=== PATIENT | male | born 1945 | race Caucasian/White ===

== ENCOUNTER 2017-04-01 07:48 | Inpatient (IN) ==
--- NOTE | 2017-04-01 10:24 | Cardiology History & Physical ---
<MahamedAngiAmanda L - Last Filed: 04/01/17 12:55> Date of Encounter: 04/01/17 Time of Encounter: 11:15 Assessment and Plan (1) PAF (paroxysmal atrial fibrillation) Current Visit: Yes Status: Acute Admission for sotalol therapy d/t symptomatic PAF. Afib with controlled rate upon presentation. Baseline EC04/01/17 HR 90 (afib) QRS 105 QT/QTc 339/387 Did not take AM dose Pradaxa; will give now. Continue home medications including cardizem. Monitor telemetry closely. Obtain daily ECG, baseline CBC, BMP, and Mag. Hx of CKD-2, will monitor kidney function closely. Will need inpatient monitoring for at least 5 doses. Plan for possible DCCV prior to discharge if has not converted to NSR. Anticoagulated on Pradaxa 150 mg BID, has not missed doses in >30 days. The patient was discussed and reviewed with Dr. Malcolm. (2) Encounter for monitoring anti-arrhythmic therapy Current Visit: Yes Status: Acute Plan as above. (3) DMII (diabetes mellitus, type 2) Current Visit: Yes Status: Chronic Resume home medications. Qualifiers: Diabetes mellitus complication status: with neurologic complications Diabetes mellitus complication detail: with polyneuropathy Diabetes mellitus nursing home insulin use: without watermaster use Qualified Code(s): E11.42 - Type 2 diabetes mellitus with diabetic polyneuropathy (4) Essential (primary) hypertension Current Visit: Yes Status: Chronic Continue home medications. Will adjust medications accordingly. History of Present Illness Chief complaint: Antiarrhythmic therapy--sotalol HPI: Mr. Mcdermott is a 71 year old male with PMH significant for DMII, HTN, HLD, GERD , SVT s/p ablation (2006 at [facility]), and afib who presents today for elective admission for antiarrhythmic initiation with sotalol. He has been to the ED on two separate occasions in the past due to symptomatic PAF (fatigue,dyspnea). Reports has been taking Pradaxa BID for >30 days. No abnormal or unusual bleeding. Prior CV testing: Regadenoson nuclear 02/20/17: perfusion imaging was negative for ischemia or infarct, pharmacologic stress ECG non-diagnostic due to baseline non-specific ST /T changes, gated EF=60% TTE 02/15/17: LVEF 50-55%, mild cLVH, mildly dilated RV with normal function, severely dilated LA and RA, no significant valvular dysfunction, normal wall motion EP study 02/06/17 ([facility]): successful ablation of AVNRT [facility] 02/06/17 ([facility]): no angiographically definable disease Past Med Surg Social Fam HX - Past Medical History Attestation: Yes The following information was validated with the patient. Source: patient, old records reviewed Medical history: arthritis, atrial fibrillation, diabetes, hyperlipidemia, hypertension, renal disease (CKD-2) - Past Surgical History Surgical History: appendectomy, cholecystectomy, other (EP study with ablation) - Family History Father Age: 86 Living Status: Cause of : Heart disease Hx Family Cardiac Disorders: Yes (CAD) Hx Family Cancer: Yes (colorectal) Hx Family Endocrine Disorder: Yes (Dm) Medications and Allergies Aspirin [Lo-Dose Aspirin EC] 81 mg PO DAILY 04/01/17 [History] Atorvastatin [Lipitor] 40 mg PO HS 04/01/17 [History] Buspirone HCl [Buspar] 10 mg PO BID 04/01/17 [History] Dabigatran [Pradaxa] 150 mg PO BID 04/01/17 [History] Diltiazem CD (24hr) [Cardizem CD] 120 mg PO BID 04/01/17 [History] Esomeprazole Magnesium [Nexium 24Hr] 2 tab PO DAILY 04/01/17 [History] Furosemide [Lasix] 40 mg PO DAILY 04/01/17 [History] GlipiZIDE [Glipizide ER] 10 mg PO BID 04/01/17 [History] Insulin Degludec [Tresiba Flextouch U-100] 70 unit SQ DAILY 04/01/17 [History] Lisinopril [Zestril] 40 mg PO DAILY 04/01/17 [History] Loratadine [Allergy Relief] 10 mg PO DAILY 04/01/17 [History] Metformin HCl [Metformin HCl ER] 1,000 mg PO BID 04/01/17 [History] Pantoprazole Sodium [Protonix] 40 mg PO DAILY 04/01/17 [History] Pregabalin [Lyrica] 100 mg PO TID 04/01/17 [History] Allergies No Known Allergies Allergy (Unverified 02/20/17 10:57) All Systems Review: A 10-system review of systems was performed and is negative for pertinent findings except as documented above in the HPI. - Cardiovascular Cardiovascular: as per HPI Physical Examination General: Conversant, No Apparent Distress HEENT: Atraumatic, Normocephaly, Mucus Membranes Moist Neck: No JVD, Normal carotid pulses Cardiac: Normal S1 and S2, No Murmur, Other (irregularly irregular) Lungs: Normal Breath Sounds, No Wheeze, Rales, Rhonchi Neuro: Alert and responsive, No focal deficits noted Abdomen: Soft, Non-Tender Skin: No rashes noted on visualized skin Musculoskeletal: No Chest Wall Tenderness Extremities: No Clubbing, No Cyanosis, No Edema, Normal Pulses Results 04/01/17 10:59 04/01/17 10:59 - Imaging and Cardiology Stress Test: report reviewed Echo: report reviewed Cardiac cath: report reviewed Other Results: Afib 80's-90's - EKG Interpretation EKG results cardiology: personally reviewed <Shannan Malcolm - Last Filed: 04/01/17 16:20> Date of Encounter: 04/01/17 History of Present Illness HPI: Mr. Mcdermott is a 71 year old male All Systems Review: A 10-system review of systems was performed and is negative for pertinent findings except as documented above in the HPI. Physical Examination Vital Signs, Last 4 Hours Temp Pulse Resp BP Pulse Ox 04/01/17 16:08 98.4 F 72 18 127/71 96 Results 04/01/17 10:59 04/01/17 10:59 Lab Results 04/01/17 04/01/17 10:59 10:59 WBC 9.3 Hgb 15.3 Hct 44.7 Plt Count 125 L Sodium 142 Potassium 4.2 Chloride 103 Carbon Dioxide 31 H BUN 10 Creatinine 1.09 Glucose 186 H Calcium 9.9 Magnesium 1.5 L - Attending Attestation I examined this patient and my medical decision-making was reviewed with the CABLE INSTALLER/PA/Advanced Practice Nurse/Resident Physician. I agree with the documented findings, disposition and treatment plan. Mr. Mcdermott is being admitted for sotalol initiation due to symptomatic atrial fibrillation. He is anticoagulated with pradaxa. Renal function is normal. All questions from patient and were answered.
[2017-04-01 11:23] LABS: Basophils % 0.3 %; Eosinophils # 0.2 K/mcL (0.0-0.6); Eosinophils % 2.2 %; Hematocrit 44.7 % (37.5-50.1); Hemoglobin 15.3 g/dL (12.9-16.9); Immature Granulocytes % 1.1 % (0-4); Lymphocytes # 1.9 K/mcL (0.6-4.6); Lymphocytes % 20.1 %; Mean Corpuscular HGB Conc 34.2 g/dL (31.6-35.5); Mean Corpuscular Hemoglobin 28.7 pg (28.0-33.3); Mean Corpuscular Volume 83.7 fL (83.0-100.0); Mean Platelet Volume 9.7 fL (9.4-12.4); Monocytes # 0.5 K/mcL (0.0-1.3); Monocytes % 4.9 %; Neutrophils # 6.7 K/mcL (1.6-8.9); Platelet Count 125 K/mcL (140-400); Red Blood Count 5.34 M/mcL (4.19-5.50); Red Cell Distribution Width 15.2 % (11.5-14.5); Segmented Neutrophils % 71.4 %
[2017-04-01 11:35] LABS: BUN/Creatinine Ratio 9 (6-26); Blood Urea Nitrogen 10 mg/dL (8-26); Calcium 9.9 mg/dL (8.6-10.8); Carbon Dioxide 31 mEq/L (19-29); Chloride 103 mEq/L (98-109); Glucose 186 mg/dL (70-99); Magnesium 1.5 mg/dL (1.6-2.6); Osmolality,Calculated 298 (280-300); Potassium 4.2 mEq/L (3.5-4.5); Sodium 142 mEq/L (136-145); eGFR For African Americans > 60 (> 60); eGFR For Non-African Americans > 60 (> 60)
[2017-04-01] MEDS ORDERED: Magnesium Sulfate 2 GM in D5% in Water 100 ML IVPB ONE (11:42)
[2017-04-01] MEDS ORDERED: Naloxone 0.4 MG/ML INJ IVP PRN (11:43)
[2017-04-01] MEDS ORDERED: Ondansetron 4 MG/2 ML VIAL IVP PRN (11:43)
[2017-04-01] MEDS ORDERED: *HR* Dabigatran 150 MG CAPSULE PO SCH (11:45)
[2017-04-01] MEDS ORDERED: *HR* Dabigatran 150 MG CAPSULE PO ONE (11:50)
[2017-04-01 15:26] LABS: Bilirubin,Urine Negative (Negative); Blood,Urine Negative (Negative); Clarity,Urine Cloudy (Clear); Color,Urine Yellow (Yellow); Glucose,Urine (UA) Normal (Normal); Ketones,Urine Negative (Negative); Leukocyte Esterase,Urine Moderate (Negative); Nitrite,Urine Positive (Negative); PH,Urine 5.5 pH Units (5.0-8.0); Protein,Urine Negative (Neg-Trace); Specific Gravity,Urine 1.015 (1.010-1.025); Urobilinogen,Urine Normal (Normal)
[2017-04-01 15:28] LABS: Bacteria,Urine Many per hpf (None-Few); Hyaline Casts,Urine None Seen per lpf (None-Few); RBC,Urine 0-3 per hpf (0-3); Squamous Epithelial Cell,Urine None Seen per lpf (None-Few); WBC,Urine 30-50 per hpf (0-3)
[2017-04-01] MEDS: *HR* Metformin 500 MG TABLET PO SCH (18:05)
[2017-04-01] MEDS: *HR* GlipiZIDE XL (24 HR) 10 MG TABLET PO SCH (18:06)
[2017-04-01] MEDS: Pregabalin 50 MG CAPSULE PO SCH (21:38)
[2017-04-01] MEDS: *HR* Dabigatran 150 MG CAPSULE PO SCH (21:38)
[2017-04-02] MEDS: Lisinopril 20 MG TABLET PO SCH (08:06)
[2017-04-02] MEDS: *HR* Dabigatran 150 MG CAPSULE PO SCH ×2 (08:07→20:31)
[2017-04-02] MEDS: *HR* Metformin 500 MG TABLET PO SCH ×2 (08:07→17:18)
[2017-04-02] MEDS: Furosemide 40 MG TABLET PO SCH (08:08)
[2017-04-02] MEDS: *HR* GlipiZIDE XL (24 HR) 10 MG TABLET PO SCH ×2 (08:08→17:18)
[2017-04-02] MEDS: Diltiazem CD (24hr) 120 MG CAPSULE PO SCH (08:08)
[2017-04-02] MEDS: Aspirin Enteric Coated 81 MG Tablet PO SCH (08:08)
[2017-04-02] MEDS: Pregabalin 50 MG CAPSULE PO SCH ×2 (08:08→20:31)
[2017-04-02] MEDS: Loratadine 10 MG TABLET PO SCH (08:08)
[2017-04-02] MEDS: INSULIN DEGLUDEC 70 UNIT SQ SCH (08:09)
[2017-04-02] MEDS ORDERED: INSULIN DEGLUDEC 70 UNIT SQ SCH (09:00)
--- NOTE | 2017-04-02 10:15 | Cardiology Progress Note ---
Date of Encounter: 04/02/17 Time of Encounter: 10:00 Assessment and Plan (1) PAF (paroxysmal atrial fibrillation) Current Visit: Yes Status: Acute Admission for sotalol therapy d/t symptomatic PAF. Afib with controlled rate upon exam. 12 hour tele: avg HR=74 afib, no significant pause or event noted. Baseline EC04/01/17 HR 90 (afib) QRS 105 QT/QTc 339/387ms ECG 04/02/17 (s/p 2 doses): HR 74 (afib) QRS 100 QT/QTc 369/396 ms Continue daily ECG. Kidney function stable, Mag replaced yesterday. Repeat labs in AM. Will need inpatient monitoring for at least 5 doses. Plan for possible DCCV in AM prior to d/c. 5th dose due 04/03/17 at 6PM. Anticoagulated on Pradaxa 150 mg BID, has not missed doses in >30 days. (2) Encounter for monitoring anti-arrhythmic therapy Current Visit: Yes Status: Acute Plan as above. (3) DMII (diabetes mellitus, type 2) Current Visit: Yes Status: Chronic Resume home medications. Qualifiers: Diabetes mellitus complication status: with neurologic complications Diabetes mellitus complication detail: with polyneuropathy Diabetes mellitus systems integrator insulin use: without assisted use Qualified Code(s): E11.42 - Type 2 diabetes mellitus with diabetic polyneuropathy (4) Essential (primary) hypertension Current Visit: Yes Status: Chronic Continue home medications. Will adjust medications accordingly. (5) Suspected UTI Current Visit: Yes Status: Acute UA positive for Leuk.esterase, nitrates, and bacteria. Urine Cx pending. Afebrile, WBC normal. Reports dysuria on and off for several months. Admits to malodorous urine. Priscilla Lares (); will start Rocephin 1gm q24h and await urine culture results. Recommended 10 day course of antibiotics with close outpatient follow-up with PCP. Discussion w patient/family: The patient will be discussed and reviewed with Dr. Malcolm, changes to be made accordingly. The assessment and plan as outlined above was discussed with the patient and/or family members who expressed understanding and agreement. All questions were answered. Thank you for involving us in the care of your patient. Please call with any questions. Subjective Principal diagnosis: Sotalol therapy Interval history: Seen and examined. Continues to describe dysuria--states on and off for several months. No other symptoms reported overnight including headache, cough, fever, chills, flank pain. Denies CV symptoms including chest pain/discomfort, palpitations, or dyspnea. Objective Vital Signs, Last 4 Hours Temp Pulse Resp Pulse Ox 04/02/17 08:00 66 04/02/17 07:18 97.8 F 68 17 94 04/02/17 07:00 77 General: Conversant, No Apparent Distress HEENT: Atraumatic, Normocephaly, Mucus Membranes Moist Neck: No JVD, Normal carotid pulses Cardiac: No Murmur, Other (irregularly irregular) Lungs: Normal Breath Sounds, No Wheeze, Rales, Rhonchi Neuro: Alert and responsive, No focal deficits noted Abdomen: Soft, Non-Tender Skin: No rashes noted on visualized skin Musculoskeletal: No Chest Wall Tenderness Extremities: No Clubbing, No Cyanosis, No Edema, Normal Pulses Results 04/01/17 10:59 04/01/17 10:59 Lab Results 04/01/17 04/01/17 10:59 10:59 WBC 9.3 Hgb 15.3 Hct 44.7 Plt Count 125 L Sodium 142 Potassium 4.2 Chloride 103 Carbon Dioxide 31 H BUN 10 Creatinine 1.09 Glucose 186 H Calcium 9.9 Magnesium 1.5 L - Imaging and Cardiology Stress Test: report reviewed Echo: report reviewed Cardiac cath: report reviewed Other Results: 12 hour tele: avg HR=73 afib. No significant pause, event noted. - EKG Interpretation EKG results cardiology: personally reviewed - VTE Reasons for not Prescribing Prophylaxis: Not indicated-Anticoagulated or INR therapeutic Consult Discharge Plan - Plan Referrals: Dru Friedman DO [Primary Care Provider] - 04/10/17 1:00 pm Abilio Petersen MD [Partnered Physician] - (CARDIOLOGY OFFICE WILL CALL PATIENT WITH F/U APPOINTMENT)
--- NOTE | 2017-04-02 18:56 | Electrocardiograph Report ---
[address] [place] [address] Test Date: 2017-04-01 Pat Name: Campos Mcdermott Department: 110 Room: 2N08 Gender: M Back Maker: SCOOTER : 1945 Requested By: Amanda Irby Order Number: [id number] Reading MD: Rahel Petersen Measurements Intervals [place] Rate: 90 P: SC: 0 QRS: -26 QRSD: 105 T: 31 QT: 339 QTc: 387 Interpretive Statements ATRIAL FIBRILLATION INFERIOR MYOCARDIAL INFARCTION, PROBABLY OLD Electronically Signed On 04-02-2017 18:55:12 EDT by Rahel ePtersen
--- NOTE | 2017-04-02 19:06 | Electrocardiograph Report ---
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
[2017-04-03 07:17] LABS: BUN/Creatinine Ratio 17 (6-26); Blood Urea Nitrogen 16 mg/dL (8-26); Calcium 9.1 mg/dL (8.6-10.8); Carbon Dioxide 28 mEq/L (19-29); Chloride 104 mEq/L (98-109); Glucose 135 mg/dL (70-99); Magnesium 1.5 mg/dL (1.6-2.6); Osmolality,Calculated 295 (280-300); Potassium 3.8 mEq/L (3.5-4.5); Sodium 141 mEq/L (136-145); eGFR For African Americans > 60 (> 60); eGFR For Non-African Americans > 60 (> 60)
[2017-04-03] MEDS: *HR* Metformin 500 MG TABLET PO SCH ×2 (08:16→16:29)
[2017-04-03] MEDS: *HR* GlipiZIDE XL (24 HR) 10 MG TABLET PO SCH ×2 (08:16→16:29)
[2017-04-03] MEDS: Lisinopril 20 MG TABLET PO SCH (09:50)
[2017-04-03] MEDS: Pregabalin 50 MG CAPSULE PO SCH ×2 (09:50→21:03)
[2017-04-03] MEDS: Loratadine 10 MG TABLET PO SCH (09:51)
[2017-04-03] MEDS: Aspirin Enteric Coated 81 MG Tablet PO SCH (09:51)
[2017-04-03] MEDS: Furosemide 40 MG TABLET PO SCH (09:51)
[2017-04-03] MEDS: *HR* Dabigatran 150 MG CAPSULE PO SCH ×2 (09:51→21:03)
[2017-04-03] MEDS: Diltiazem CD (24hr) 120 MG CAPSULE PO SCH (09:51)
[2017-04-03] MEDS ORDERED: 0.9 % Sodium Chloride 500 ML IVC ONE (10:10)
[2017-04-03] MEDS: *HR* Midazolam HCl 5 MG/5 ML VIAL IVP PRN ×3 (11:15→11:27)
[2017-04-03] MEDS: *HR* FentaNYL (PF) 100 MCG/2 ML VIAL IVP PRN ×3 (11:15→11:27)
--- NOTE | 2017-04-03 13:01 | Event Note ---
Date of Encounter: 04/03/17 Time of Encounter: 13:00 - Cardiology Event Note Successful DCCV on second shock at 300J. Pt very drowsy, is disabled and concerned about taking him home today, would prefer he stay one more night for monitoring, which is reasonable given the situation. EKGs reviewed, QTc remains <500ms. Currently SR, rate 60s. Anticipate discharge home in AM.
[2017-04-03] MEDS: INSULIN DEGLUDEC 70 UNIT SQ SCH (16:31)
--- NOTE | 2017-04-03 17:57 | Electrocardiograph Report ---
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
--- NOTE | 2017-04-03 18:06 | Electrocardiograph Report ---
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
--- NOTE | 2017-04-03 18:06 | Electrocardiograph Report ---
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
[2017-04-04 07:30] VITALS: BP 133/74
[2017-04-04] MEDS: *HR* Dabigatran 150 MG CAPSULE PO SCH (07:49)
[2017-04-04] MEDS: Lisinopril 20 MG TABLET PO SCH (07:49)
[2017-04-04] MEDS: Pregabalin 50 MG CAPSULE PO SCH (07:50)
[2017-04-04] MEDS: *HR* Metformin 500 MG TABLET PO SCH (07:50)
[2017-04-04] MEDS: Diltiazem CD (24hr) 120 MG CAPSULE PO SCH (07:50)
[2017-04-04] MEDS: Loratadine 10 MG TABLET PO SCH (07:50)
[2017-04-04] MEDS: Aspirin Enteric Coated 81 MG Tablet PO SCH (07:50)
[2017-04-04] MEDS: *HR* GlipiZIDE XL (24 HR) 10 MG TABLET PO SCH (07:50)
[2017-04-04] MEDS: Furosemide 40 MG TABLET PO SCH (07:50)
[2017-04-04] MEDS: INSULIN DEGLUDEC 70 UNIT SQ SCH (08:24)
[2017-04-04] MEDS ORDERED: Magnesium Oxide 400 MG TABLET PO SCH (09:00)
--- NOTE | 2017-04-04 09:19 | Discharge Summary ---
Date of Encounter: 04/04/17 Time of Encounter: 09:16 - Discharge Diagnosis (1) PAF (paroxysmal atrial fibrillation) Priority: Primary Status: Acute Comments: Admission for sotalol therapy d/t symptomatic PAF. Has received >5 doses, QTc remains <500ms. Mag 1.5, placed on PO Magnesium. S/P Successful DCCV yesterday. Restored SR after second shock at 300J. Cerda from DCCV noted on chest and back. No open areas. Will order Silvadene cream. Anticoagulated on Pradaxa 150 mg BID, has not missed doses in >30 days. Discharge home in stable condition with outpt follow-up. (2) Encounter for monitoring anti-arrhythmic therapy Priority: Primary Status: Acute Comments: As above. (3) DMII (diabetes mellitus, type 2) Priority: Secondary Status: Chronic Comments: Resume home meds. Qualifiers: Diabetes mellitus complication status: with neurologic complications Diabetes mellitus complication detail: with polyneuropathy Diabetes mellitus emt intermediate insulin use: without emt intermediate use Qualified Code(s): E11.42 - Type 2 diabetes mellitus with diabetic polyneuropathy (4) Essential (primary) hypertension Priority: Secondary Status: Chronic Comments: Controlled on current meds. (5) UTI (urinary tract infection) Priority: Secondary Status: Acute Comments: Pt complained of dysuria, UA positive with culture growing E.coli. Has been on IV Rocephin while inpt. Will discharge home with 7 day course of Macrobid 100mg BID. Follow-up with PCP. Qualifiers: Urinary tract infection type: acute cystitis Hematuria presence: without hematuria Qualified Code(s): N30.00 - Acute cystitis without hematuria - Discharge Medications Prescriptions: Sotalol [Betapace] 80 mg PO Q12HR #60 tablet Magnesium Oxide [Mag-Ox] 400 mg PO DAILY #30 tablet Nitrofurantoin (BID) [Macrobid] 100 mg PO BIDWM #13 capsule Home Medications: Aspirin [Lo-Dose Aspirin EC] 81 mg PO DAILY 04/01/17 [History] Atorvastatin [Lipitor] 40 mg PO HS 04/01/17 [History] Buspirone HCl [Buspar] 10 mg PO BID 04/01/17 [History] Dabigatran [Pradaxa] 150 mg PO BID 04/01/17 [History] Diltiazem CD (24hr) [Cardizem CD] 120 mg PO BID 04/01/17 [History] Esomeprazole Magnesium [Nexium 24Hr] 2 tab PO DAILY 04/01/17 [History] Furosemide [Lasix] 40 mg PO DAILY 04/01/17 [History] GlipiZIDE [Glipizide ER] 10 mg PO BID 04/01/17 [History] Insulin Degludec [Tresiba Flextouch U-100] 70 unit SQ DAILY 04/01/17 [History] Lisinopril [Zestril] 40 mg PO DAILY 04/01/17 [History] Loratadine [Allergy Relief] 10 mg PO DAILY 04/01/17 [History] Metformin HCl [Metformin HCl ER] 1,000 mg PO BID 04/01/17 [History] Pantoprazole Sodium [Protonix] 40 mg PO DAILY 04/01/17 [History] Pregabalin [Lyrica] 100 mg PO TID 04/01/17 [History] Magnesium Oxide [Mag-Ox] 400 mg PO DAILY #30 tablet 04/04/17 [Rx] Nitrofurantoin (BID) [Macrobid] 100 mg PO BIDWM #13 capsule 04/04/17 [Rx] Sotalol [Betapace] 80 mg PO Q12HR #60 tablet 04/04/17 [Rx] Allergies/Adverse Reactions: Allergies No Known Allergies Allergy (Unverified 02/20/17 10:57) Procedures/tests Complete & Pending: Procedures Performed prior 72 hours Category Date Time Status ECG 12 lead ECG [ECG] AM 0600 Y 04/02/17 06:00 Completed ECG 12 lead ECG [ECG] AM 0600 Y 04/03/17 06:00 Completed ECG 12 lead ECG [ECG] AM 0600 Y 04/04/17 06:00 Ordered ECG 12 lead ECG [ECG] Routine Y 04/03/17 10:39 Completed ECG 12 lead ECG [ECG] Routine Y 04/03/17 11:35 Completed ECG 12 lead ECG [ECG] Stat Y 04/01/17 10:23 Completed EV cardioversion Routine Y 04/02/17 15:03 Completed Date of admission: 04/01/17 09:09 Primary care physician: Dru Friedman DO Discharging clinician: Víctor Rowley Anticipated date of discharge: 04/04/17 - Patient Status Disposition: Home, Self-Care Condition: Good Functional capacity at discharge: independent ambulation Overall status at discharge: patient is progressing back to baseline - Discharge Instructions Follow Up With: Dru Friedman DO [Primary Care Provider] - 04/10/17 1:00 pm Abilio Petersen MD [Partnered Physician] - (CARDIOLOGY OFFICE WILL CALL PATIENT WITH F/U APPOINTMENT) - Diet and Activity Activity: increase activity as tolerated Diet: low fat, low cholesterol - Hospital Course Hospital course: Mr. Mcdermott is a 71 year old male admitted for sotalol therapy d/t symptomatic PAF. Has received >5 doses, QTc remains <500ms. Mag 1.5, placed on PO Magnesium. Recheck Mag in 1 week. S/P Successful DCCV yesterday. Restored SR after second shock at 300J. Cerda from DCCV noted on chest and back. No open areas. Will order Silvadene cream. Anticoagulated on Pradaxa 150 mg BID, has not missed doses in >30 days. Pt was found to have UTI--complaints of dysuria on admission so UA was ordered, culture grew E.coli. Has been on IV Rocephin as inpt, switch to PO Macrobid 100mg BID x 7 days. Follow-up with PCP for UTI. Discharge home in stable condition with outpt cardiology follow-up. - Time Spent with Patient Total time spent providing and/or coordinating discharge services: 30 minutes Physical Examination Vital Signs, Last 4 Hours Temp Pulse Resp BP Pulse Ox 04/04/17 07:22 96.3 F L 66 18 133/74 95 04/04/17 05:22 97.6 F 69 14 110/74 96 Vital Signs Temp Pulse Resp BP Pulse Ox 04/04/17 07:22 96.3 F L 66 18 133/74 95 04/04/17 05:22 97.6 F 69 14 110/74 96 04/04/17 04:44 67 04/04/17 01:00 97.8 F 69 16 128/76 96 04/03/17 19:28 69 04/03/17 19:18 97.9 F 69 16 144/83 96 04/03/17 16:29 97.7 F 67 16 131/69 95 04/03/17 15:45 67 04/03/17 14:18 97.8 F 68 17 99 04/03/17 13:08 98.0 F 04/03/17 12:44 69 16 112/68 95 04/03/17 10:50 97.9 F 67 12 148/85 97 Intake and Output 04/03/17 04/04/17 04/04/17 23:59 07:59 15:59 Intake Total 690 / 690 650 / 650 360 / 360 Output Total 250 / 250 250 / 250 300 / 300 Balance 440 / 440 400 / 400 60 / 60 Intake: Oral 690 / 690 650 / 650 360 / 360 Output: Urine 250 / 250 250 / 250 300 / 300 Other: Meal Dinner Breakfast Percent of Meal Consumed 100% 100% Weight 150.1 kg Blood Glucose* 134 111 Patient Weight 04/04/17 23:59 Weight 150.1 kg General: Conversant HEENT: Atraumatic, Normocephaly, Mucus Membranes Moist Neck: No JVD, Normal carotid pulses Cardiac: Reg Rate and Rhythm, Normal S1 and S2, No Murmur Lungs: Normal Breath Sounds, No Wheeze, Rales, Rhonchi Neuro: Alert and responsive, No focal deficits noted Abdomen: Soft, Non-Tender Skin: Other (Burn areas from DCCV on chest and back. No open areas.) Musculoskeletal: No Chest Wall Tenderness Extremities: No Clubbing, No Cyanosis, No Edema, Normal Pulses - VTE Reasons for not Prescribing Prophylaxis: Not indicated-Anticoagulated or INR therapeutic
[2017-04-04] MEDS ORDERED: Nitrofurantoin (BID) 100 MG CAPSULE PO SCH (09:30)
[2017-04-04] MEDS ORDERED: Silver Sulfadiazine 50 GM TUBE TP SCH (09:30)
--- NOTE | 2017-04-04 17:48 | Electrocardiograph Report ---
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
== END 2017-04-04 12:37 | disposition home or self-care (01) | DRG 309 ==
LOC: 2NNU 09:09
PROVIDERS: ADMIT Internal Medicine; ATTEND Internal Medicine